=== PATIENT | male | born 1970 | race Caucasian/White ===

== ENCOUNTER 2019-09-16 08:12 | Emergency (ER) | payer BC ==
[~2019-09-16] VITALS: Ht 175.3 cm; Wt 79.3 kg
--- NOTE | 2019-09-16 09:02 | ECGEPIP ---
[facility] - ED Test Date: 2019-09-16 Pat Name: KYLEIGH WOMACK Department: Room: - Gender: Male Central Sterilization Technician: ALEXSANDRA : 1970 Requested By: ERIC TROTTER Order Number: [id number] Reading MD: Patricio Orozco Measurements Intervals Eliot Rate: 60 P: 67 ID: [id number] QRS: 64 QRSD: 93 T: 55 QT: 376 QTc: 378 Interpretive Statements SINUS RHYTHM INCOMPLETE RIGHT BUNDLE BRANCH BLOCK NO PRIORS FOR COMPARISON Electronically Signed on 09-16-2019 9:02:33 EST by Patricio Orozco
[2019-09-16 09:11] LABS: BASO # 0.1 10^3/uL (0.0-0.2); EOS # 0.4 10^3/uL (0.0-0.5); EOS % 5.7 % (0.0-3.0); HEMATOCRIT 42.6 % (42.0-52.0); HEMOGLOBIN 14.6 g/dl (13.5-17.5); MEAN CORPUSCULAR HEMOGLOBIN 31.1 pg (27.0-33.0); MEAN CORPUSCULAR HGB CONC 34.3 g/dl (32.0-36.5); MEAN CORPUSCULAR VOLUME 90.8 fl (80.0-96.0); MONO # 0.6 10^3/uL (0.0-0.8); MONO % 7.9 % (0.0-5.0); NEUTROPHILS # 3.1 10^3/uL (1.5-8.5); NEUTROPHILS % 43.3 % (36.0-66.0); PLATELET COUNT, AUTOMATED 240 10^3/uL (150-450); RED BLOOD COUNT 4.69 10^6/uL (4.30-6.10); WHITE BLOOD COUNT 7.2 10^3/uL (4.0-10.0)
[2019-09-16] MEDS ORDERED: KETOROLAC 60 MG/2 ML VIAL (J1885) IM ONE (09:45)
[2019-09-16 09:55] LABS: APPEARANCE, URINE CLEAR (CLEAR); BACTERIA, URINE AUTO NEGATIVE (NEGATIVE); BILIRUBIN, URINE AUTO NEGATIVE (NEGATIVE); BLOOD, URINE BLOOD NEGATIVE (NEGATIVE); COLOR, URINE YELLOW (YELLOW); GLUCOSE, URINE (UA) AUTO NEGATIVE (NEGATIVE); KETONE, URINE AUTO NEGATIVE (NEGATIVE); LEUKOCYTE ESTERASE, URINE AUTO NEGATIVE (NEGATIVE); NITRITE, URINE AUTO NEGATIVE (NEGATIVE); PROTEIN, URINE AUTO NEGATIVE (NEGATIVE); RBC, URINE AUTO 1 /HPF (0-3); SPECIFIC GRAVITY URINE AUTO 1.008 (1.002-1.035); SQUAMOUS EPITHELIAL CELL UR AU 0 /HPF (0-6); UROBILINOGEN, URINE AUTO 0.2 mg/dL (0.0-2.0); WBC, URINE AUTO 0 /HPF (0-3)
--- NOTE | 2019-09-16 10:06 | REP ---
Clinical: Headache and dizziness . Comparison: None . Findings: The ventricles, sulci, and cisterns are normal in position and appearance. Xiong-white differentiation is maintained. No acute intracranial hemorrhage, mass/mass effect, pathology or trauma/injury. No evidence for acute infarction. No extra-axial fluid collection. Calvarium is intact. Paranasal sinuses and mastoid air cells are clear. Impression: Normal noncontrast head CT. No evidence for acute intracranial pathology or trauma/injury. Electronically Signed by Naldo Del Rosario MD 09/16/2019 09:57 A
[2019-09-16 10:26] VITALS: BP 120/78
== END 2019-09-16 10:42 | disposition home or self-care (01) ==
LOC: M ED 08:12
DX: R51 Headache (principal); R42 Dizziness and giddiness
CPT/HCPCS: 70450; 80047; 81001; 85025; 93005; 96372; 99284; J1885

== ENCOUNTER 2020-08-21 09:53 | Emergency (ER) | payer BC ==
[~2020-08-21] VITALS: Ht 175.3 cm; Wt 83.9 kg
[2020-08-21] MEDS ORDERED: IBUP-1022 PO (10:00)
[2020-08-21] MEDS ORDERED: TYLE650T38 PO (10:00)
[2020-08-21] MEDS ORDERED: AMBI10TA PO (10:00)
[2020-08-21] MEDS ORDERED: NAPR250T4 PO (10:00)
[2020-08-21] MEDS ORDERED: CYCL-707 PO (11:12)
[2020-08-21] MEDS ORDERED: KETO10TAB PO (11:12)
[2020-08-21] MEDS ORDERED: KETOROLAC 60MG 2ML VIAL IM ONE (11:15)
[2020-08-21 11:39] VITALS: BP 102/63
== END 2020-08-21 11:52 | disposition home or self-care (01) ==
LOC: M ED 09:53
DX: S39.012A Strain of muscle, fascia and tendon of lower back, initial encounter (principal); X50.0XXA Overexertion from strenuous movement or load, initial encounter; Y92.9 Unspecified place or not applicable; Y93.9 Activity, unspecified; Y99.9 Unspecified external cause status; Z79.899 Other long term (current) drug therapy
CPT/HCPCS: 96372; 99283; J1885

== ENCOUNTER → 2020-08-25 | Outpatient (CLI) | payer BC ==
[~2020-08-25] MED LIST: AMBI10TA PO; CYCL-707 PO; IBUP-1022 PO; KETO10TAB PO; NAPR250T4 PO; TYLE650T38 PO
== END ==
LOC: M LABSMTC 14:12
PROVIDERS: ATTEND Orthopaedic Surgery
DX: Z01.812 Encounter for preprocedural laboratory examination (principal); Z20.828 Contact with and (suspected) exposure to other viral communicable diseases

== ENCOUNTER → 2022-02-06 | Outpatient (REF) | payer BC ==
[~2022-02-06] MED LIST changes: +NAPR-849 PO; -NAPR250T4 PO
== END ==
LOC: M SFHCDERM 19:18
PROVIDERS: ATTEND Nurse Practitioner Family
DX: L82.1 Other seborrheic keratosis (principal)

== ENCOUNTER → 2022-02-20 | Outpatient (REF) | payer BC | LOC: M LAB REF 14:00 | PROVIDERS: ATTEND Nurse Practitioner Family | DX: D22.21 Melanocytic nevi of right ear and external auricular canal (principal) ==

== ENCOUNTER → 2022-07-04 | Outpatient (REF) | payer BC | LOC: M LAB REF 19:46 | PROVIDERS: ATTEND Physician Assistant | DX: J06.9 Acute upper respiratory infection, unspecified (principal); J02.9 Acute pharyngitis, unspecified ==